=== PATIENT | female | born 1970 | race Caucasian/White ===

== ENCOUNTER → 2020-09-25 | Outpatient (CLI) | payer MEDICARE ==
[~2020-09-25] MED LIST: BUPROPION XL150 MG PO; BYSTOLIC5 MG PO; CALCIUM + D SO1 EACH PO; CYMBALTA60 MG PO; EVENING PRIMR1000 MG PO; GABAPENTIN300 MG PO; GINKGO BILOBA120 MG PO; IRON325 M1 PO; LEVOCETIRIZINE D5 MG PO; MAGNESIUM100 MG PO; NORCO 5-325 TA1 EACH PO; OMEGA 3-6-9 CO400 MG PO; PHENTERMINE H37.5 M1 PO; PRAVACHOL80 MG PO; PROTONIX 20 MG20 MG PO; SYNTHROID125 MCG PO; VITAMIN B-121000 MCG PO; VITAMIN D350000 UNIT PO; ZOLMITRIPTAN5 MG PO; ZYLOPRIM 300 M300 MG PO
[2020-09-26 12:14] LABS: RHEUMATOID ARTHRITIS FACTOR <10.0 IU/mL (0.0-13.9)
[2020-09-27 01:09] LABS: CCP ANTIBODIES IGG/IGA 4 units (0-19)
== END ==
LOC: LAB 10:23
PROVIDERS: Internal Medicine
DX: D89.89 Other specified disorders involving the immune mechanism, not elsewhere classified (principal); M25.50 Pain in unspecified joint; R76.8 Other specified abnormal immunological findings in serum
CPT/HCPCS: 36415; 83520; 86200; 86431

== ENCOUNTER → 2020-11-12 | Outpatient (CLI) | payer MEDICARE | LOC: KOH-I 14:32 | DX: M89.312 Hypertrophy of bone, left shoulder (principal); M89.311 Hypertrophy of bone, right shoulder; M89.8X1 Other specified disorders of bone, shoulder; M50.30 Other cervical disc degeneration, unspecified cervical region | CPT/HCPCS: 72040; 73000 ==

== ENCOUNTER → 2020-11-24 | Outpatient (CLI) | payer MEDICARE | LOC: KOH-I 11-19 13:00 | DX: R13.10 Dysphagia, unspecified (principal); M54.2 Cervicalgia; E04.1 Nontoxic single thyroid nodule; E07.89 Other specified disorders of thyroid | CPT/HCPCS: 76536 ==

== ENCOUNTER 2021-04-14 08:02 | Emergency (ER) | payer MEDICARE ==
[~2021-04-14] VITALS: Ht 160 cm; Wt 83.9 kg
== END 2021-04-14 10:38 | disposition home or self-care (01) ==
LOC: ER1 08:02
DX: Z23 Encounter for immunization (principal); U07.1 COVID-19; K21.9 Gastro-esophageal reflux disease without esophagitis; E03.9 Hypothyroidism, unspecified; Z90.710 Acquired absence of both cervix and uterus
CPT/HCPCS: 87081; 87880; 99284; M0243

== ENCOUNTER → 2021-07-24 | Outpatient (CLI) | payer MEDICARE | LOC: ECHO 05-27 09:30 | DX: R06.02 Shortness of breath (principal); R76.8 Other specified abnormal immunological findings in serum; I08.3 Combined rheumatic disorders of mitral, aortic and tricuspid valves | CPT/HCPCS: ECHO; 93306 ==

== ENCOUNTER → 2022-05-20 | Outpatient (CLI) | payer MEDICARE ==
[2022-05-20 11:51] LABS: HEMOGLOBIN 14.3 gm/dl (12.3-15.3); RED BLOOD COUNT 4.9 M/UL (4.00-5.10); WHITE BLOOD COUNT 8.9 K/UL (4.5-11.0)
[2022-05-20 12:05] LABS: BUN/CREATININE RATIO 10 (0-10)
[2022-05-21 07:10] LABS: VITAMIN D, 25-HYDROXY 44.4 ng/mL (30.0-100.0)
[2022-05-21 08:13] LABS: ANTISTREPTOLYSIN O AB 88.2 IU/mL (0.0-200.0)
[2022-05-21 11:13] LABS: CREATININE, URINE 59.7 mg/dL (Not Estab.)
== END ==
LOC: LAB 11:04
PROVIDERS: Nurse Practitioner Family
DX: Z00.00 Encounter for general adult medical examination without abnormal findings (principal); R79.89 Other specified abnormal findings of blood chemistry; I10 Essential (primary) hypertension; J30.9 Allergic rhinitis, unspecified; D64.9 Anemia, unspecified; M25.50 Pain in unspecified joint; R51.9 Headache, unspecified; E78.00 Pure hypercholesterolemia, unspecified
CPT/HCPCS: 36415; 80053; 80061; 82043; 82570; 82607; 83036; 84439; 84443; 84550; 85025; 85652; 86038; 86060; 86140; 86431